=== PATIENT | male | born 1970 | race Caucasian/White ===

== ENCOUNTER 2017-11-01 14:45 | Emergency (ER) | payer OTHER ==
[~2017-11-01] VITALS: Ht 177.8 cm; Wt 79.4 kg
[~2017-11-01 14:45] MED LIST: Aspir 8181 MG; Bactrim Ds Tab1 EACH PO; Cleocin HCl300 MG PO; Keflex500 MG PO; Percocet 5-3251 EACH PO; Prednisone20 MG PO
[2017-11-01] MEDS ORDERED: Keflex500 MG PO (16:26)
[2017-11-01] MEDS ORDERED: Bactrim Ds Tab1 EACH PO (16:26)
== END 2017-11-01 16:33 | disposition home or self-care (01) ==
LOC: ER 14:45
DX: L03.114 Cellulitis of left upper limb (principal); L02.512 Cutaneous abscess of left hand; L02.414 Cutaneous abscess of left upper limb; F17.210 Nicotine dependence, cigarettes, uncomplicated
CPT/HCPCS: 36415; 84484; 93005; 93010; 99283

== ENCOUNTER 2018-12-21 12:44 | Emergency (ER) | payer OTHER ==
[~2018-12-21] VITALS: Ht 177.8 cm; Wt 72.8 kg
[2018-12-21] MEDS ORDERED: Norco 5-325 Ta1 EACH PO (14:43)
== END 2018-12-21 14:50 | disposition home or self-care (01) ==
LOC: ER 12:44
DX: S51.812A Laceration without foreign body of left forearm, initial encounter (principal); S50.02XA Contusion of left elbow, initial encounter; S80.02XA Contusion of left knee, initial encounter; S29.9XXA Unspecified injury of thorax, initial encounter; F17.210 Nicotine dependence, cigarettes, uncomplicated; V03.90XA Pedestrian on foot injured in collision with car, pick-up truck or van, unspecified whether traffic or nontraffic accident, initial encounter; Y93.01 Activity, walking, marching and hiking
CPT/HCPCS: 71101; 73080; 73564; 99284-25; A9270-GY

== ENCOUNTER 2020-05-12 20:39 | Emergency (ER) | payer OTHER ==
[~2020-05-12] VITALS: Ht 177.8 cm; Wt 74.8 kg
[~2020-05-12 20:39] MED LIST changes: +Norco 5-325 Ta1 EACH PO
== END 2020-05-12 21:30 | disposition left against medical advice (07) ==
LOC: ER 20:39
DX: Z53.21 Procedure and treatment not carried out due to patient leaving prior to being seen by health care provider (principal)

== ENCOUNTER 2023-01-04 03:32 | Emergency (ER) | payer OTHER ==
[~2023-01-04] VITALS: Ht 177.8 cm; Wt 86.2 kg
[~2023-01-04 03:32] MED LIST changes: +CEPH500 PO
[2023-01-04 04:05] VITALS: BP 146/104
== END 2023-01-04 05:05 | disposition home or self-care (01) ==
LOC: ER 03:32
DX: M70.21 Olecranon bursitis, right elbow (principal); F17.210 Nicotine dependence, cigarettes, uncomplicated; X58.XXXA Exposure to other specified factors, initial encounter
CPT/HCPCS: 99283

== ENCOUNTER 2025-02-10 19:21 | Emergency (ER) | payer OTHER ==
[~2025-02-10] VITALS: Ht 172.7 cm; Wt 77.1 kg
[2025-02-10 20:28] VITALS: BP 170/107
== END 2025-02-10 21:37 | disposition home or self-care (01) ==
LOC: ER 19:21
DX: M79.602 Pain in left arm (principal); Z88.5 Allergy status to narcotic agent
CPT/HCPCS: 71045; 73060; 99283-25

== ENCOUNTER 2025-03-10 15:59 | Emergency (ER) | payer OTHER ==
[~2025-03-10] VITALS: Ht 177.8 cm; Wt 76.0 kg
[2025-03-10 16:01] VITALS: BP 176/124
== END 2025-03-10 17:17 | disposition home or self-care (01) ==
LOC: ER 15:59
DX: Z03.821 Encounter for observation for suspected ingested foreign body ruled out (principal); F17.210 Nicotine dependence, cigarettes, uncomplicated; Z88.5 Allergy status to narcotic agent
CPT/HCPCS: 71046; 74018; 99283-25